=== PATIENT | female | born 1980 | race Caucasian/White ===

== ENCOUNTER 2021-07-29 18:09 | Emergency (ER) | payer SELFPAY ==
[2021-07-29 18:26] VITALS: BP 146/92; PULSE 118; RESP 22; TEMP 37.5; O2SAT 100; BMI 19.2
--- NOTE | 2021-07-29 18:53 | ED_ITS ---
Documented by User: KULWANT Jimenez 07/29/21 23:22 HPI - Wound/Laceration General: Chief Complaint: Wound/Laceration Stated Complaint: RT Under arm growth Time Seen by Provider: 07/29/21 18:36 History of Present Illness: Patient is a 41-year-old female comes to the ED with abscess in right armpit and elevated blood sugars. Patient is a type I diabetic and takes insulin at home. For the past several days patient says her blood sugars have been running over 500. Before she came to the ED she checked her blood sugar and it was over 600. She administered some insulin and then came to the ED. The right axillary abscess started approximately 1 week ago. She said it was small red nodule with a hightower that she thought was an ingrown hair. Swelling and pain continued to increase and now she rates the abscess pain currently a 9 out of 10. It has a large white head, red hot and swollen. Patient says she has had abscesses in the past but none in the axillary region. Denies any past MRSA or staph infections. Denies any abdominal pain, nausea/vomiting. Associated symptoms: Denies chills, fever(s), nausea or vomiting Review of Systems Const: Denies: fever(s), chills or fatigue Eyes: Denies: change in vision or eye discomfort ENMT: Denies: throat pain, odynophagia, nasal discharge or nasal congestion Card: Denies: chest pain, palpitations, edema, swelling of feet/ankles, dyspnea on exertion or orthopnea Resp: Denies: dyspnea, productive cough or non-productive cough GI: Denies: abdominal pain, nausea, vomiting, diarrhea, constipation or hematochezia : Denies: flank pain, dysuria or hematuria Musc: Denies: neck pain, back pain or extremity swelling Skin/Breast: Reports: new lesions (Abscess in right axillary region.); Denies: rash Neuro: Denies: headache(s), numbness in extremities or weakness in extremities Endo: Reports: other (Elevated Blood sugars over 500 for the past 3 days.) [facility]LY [facility] ED PFSH: Medical History Diabetes type I No pertinent family history Physical Exam Const: COMMON NORMALS: patient oriented x3 and alert GENERAL APPEARANCE: cooperative HENMT: COMMON NORMALS: normocephalic HEAD & SCALP: normocephalic MOUTH: Normal oral and palatal mucosa present THROAT: posterior oropharynx normal and uvula midline Eye: COMMON NORMALS: Equal, round and reactive pupils present and conjunctivae normal CONJUNCTIVA: Yes conjunctivae normal PUPIL: Yes Equal, round and reactive pupils present Neck/C-Spine: COMMON NORMALS: supple GENERAL: Yes normal visual inspection Resp: COMMON NORMALS: normal respiratory effort, No retractions, No use of accessory muscles and clear to auscultation bilaterally AUSCULTATION: clear to auscultation bilaterally Cardio: COMMON NORMALS: regular rate, regular rhythm, S1 normal heart sound present, S2 normal heart sound present, No gallops present (Cardio), No clicks present (Cardio), No murmurs present (Cardio) and Peripheral pulses 2+ throughout RATE: regular rate RHYTHM: regular rhythm HEART SOUNDS: S1 normal heart sound present and S2 normal heart sound present PERIPHERAL PULSES: Peripheral pulses 2+ throughout GI: COMMON NORMALS: Normal to inspection, nondistended, normoactive bowel sounds present, Soft to palpation, non-tender and no masses PALPATION: Yes Soft to palpation : COMMON NORMALS: Yes no CVA tenderness BLADDER/KIDNEY EXAM: Yes no CVA tenderness Back/Pelvis: COMMON NORMALS: no CVA tenderness Extremity: COMMON NORMALS: normal to inspection Neuro: COMMON NORMALS: patient oriented x3 SENSORIUM/ORIENTATION: Yes alert Skin: NARRATIVE SKIN EXAM: Right axillary?large, warm, tender nodule with white pustule head. Fluctuant and indurated. Some active purulent drainage during exam. Procedures Abscess I/D Site: upper extremity (right axillary) Side (if applicable): right Sedation/analgesia: other (dilaudid) Local Anesthetic: lidocaine 2% Amount of anesthesia used (mL): 6 Technique: incised with #11 blade Amount of fluid expressed (mL): 10 (Purulent malodorous and bloody drainage.) Irrigation: Yes Packing used?: none (pt refused packing. I strongly recommended it and explained risks of no packing) Course Vital Signs: Vital signs: Vital Signs Temperature 98.7 F 07/29/21 21:53 Pulse Rate 106 H 07/29/21 21:53 Respiratory Rate 17 07/29/21 21:53 Blood Pressure 147/92 07/29/21 21:53 Pulse Oximetry 99 07/29/21 21:53 MDM - Wound/Laceration Medical Decision Making Patient is a 41-year-old female that comes to the ED with right axillary abscess and hyperglycemia. She is a type I diabetic and takes insulin at home. Abscess started approximately a week ago and was small with a hightower and she thought it was a ingrown hair. It continued to get bigger red and more painful. She states her blood sugars have been hard to control for the past 3 days and she has been having consistent denies any fevers, shortness of breath, nauseous, vomiting or abdominal pain. Patient has had consistent blood sugar readings over 500 for the past 3 days. Vitals are stable after pain was controlled. She has a medium sized abscess with erythema, warmth and a white pustule head and minimal active purulent drainage. Rest of exam is benign. White blood cell count of 12.3 the rest of CBC was unremarkable. Patient's first blood glucose reading here in the ED was 598. CMP was unremarkable except for her blood glucose level of 335. hCG serum negative. Blood culture and abscess culture and Gram stain is pending. Serum ketones were negative. ABG was unremarkable. EKG showed sinus tachycardia with no other acute findings noted. Patient was given 1 L of IV fluids, 10 units of IV Novolin, Zofran and Dilaudid to help with pain. I&D was performed on abscess and I used lidocaine 2% as local. Approximately 10 mL of purulent malodorous drainage removed. Patient refused me putting any packing in abscess even after I strongly recommended it and talked about possible risks of not using packing. Abscess was irrigated extensively with normal saline. She was given IV bank here in the ED as well. Patient's blood glucose level dropped to 161. She was diagnosed with hyperglycemia and abscess. Patient was stable for discharge home and was told to follow-up with urgent care, PCP or emergency department the next 3 days to have abscess reevaluated. She was discharged home with a prescription for clindamycin, doxycycline and Celebrex for pain. Patient understood and agreed with plan. Lab Data I reviewed the patient's lab results. : 07/29/21 19:30 07/29/21 19:30 Laboratory Results WBC 12.3 10^3/uL (4.0-10.0) H 07/29/21 19:30 RBC 3.83 10^6/uL (4.1-5.3) L 07/29/21 19: Hgb 11.8 g/dL (11.5-15.3) 07/29/21: Hct 35.3 % (37.0-47.0) L 07/29/21: MCV 92.2 fl (81-99) 07/29/21: MCH 30.8 pg (28.0-34.0) 07/29/21: MCHC 33.4 g/dL (30.0-36.0) 07/29/21: RDW 14.6 % (12.1-15.1) 07/29/21: Plt Count 490 10^3/cmm (130-400) H 07/29/21: MPV 10.2 fL (7.4-10.4) 07/29/21: Neut % (Auto) 73.6 % 07/29/21: Lymph % (Auto) 15.9 % 07/29/21: Hyde % (Auto) 9.1 % 07/29/21: Eos % (Auto) 0.6 % 07/29/21: Baso % (Auto) 0.4 % 07/29/21: Neut # (Auto) 9.06 10^3/uL (1.8-7.7) H 07/29/21: Lymph # (Auto) 2.0 10^3/uL (0.8-4.8) 07/29/21: Hyde # (Auto) 1.1 10^3/uL (0.2-0.9) H 07/29/21: Eos # (Auto) 0.1 10^3/uL (0.0-0.8) 07/29/21: Baso # (Auto) 0.1 10^3/uL (0.0-0.1) 07/29/21: Nucleated RBC % (auto) 0 % 07/29/21 Nucleated RBCs # 0.0 /100WBC 07/29/21: Specimen Type Arterial 07/29/21 19:00 Sample Site Radial, left 07/29/21 19:00 ABG pH 7.39 (7.35-7.45) 07/29/21 19:00 ABG pCO2 44.7 mmHg (35-45) 07/29/21 19:00 ABG pO2 74.2 mmHg (80.0-100.0) L 07/29/21 19:00 ABG HCO3 27.2 mmol/L (22-26) H 07/29/21 19:00 ABG Base Excess 1.9 mmol/L (-2.0-2.0) 07/29/21 19:00 Fabian Test Pos 07/29/21 19:00 Hematocrit 36.5 % (37-47) L 07/29/21 19:00 O2 Delivery Device Room air 07/29/21 19:00 Wash Driller Helper ID raúl 07/29/21 19:00 Sodium 135 mmol/L (136-145) L 07/29/21 19:30 Potassium 4.3 mmol/L (3.5-5.1) 07/29/21 19:30 Chloride 98 mmol/L (98-107) 07/29/21 19:30 Carbon Dioxide 25 mmol/L (22-29) 07/29/21 19:30 Anion Gap 16.3 (5-19) 07/29/21 19:30 BUN 17 mg/dL (6-20) 07/29/21 19:30 Creatinine 0.6 mg/dL (0.5-0.9) 07/29/21 19:30 GFR Calculation 110.7 mL/min (90-130) 07/29/21 19:30 Glucose 335 mg/dL (65-115) H 07/29/21 19:30 POC Glucose 161 mg/dL (70-110) H 07/29/21 20:34 Calculated Osmolality 295 mOsm/kg (285-295) 07/29/21 19:30 Calcium 9.1 mg/dL (8.5-10.5) 07/29/21 19:30 Total Bilirubin 0.2 mg/dL (0.15-1.2) 07/29/21 19:30 AST 43 U/L (0-32) H 07/29/21 19:30 ALT 57 U/L (0-33) H 07/29/21 19:30 Alkaline Phosphatase 105 IU/L (35-105) 07/29/21 19:30 Total Protein 7.2 g/dL (6.6-8.7) 07/29/21 19:30 Albumin 3.4 g/dL (3.5-5.2) L 07/29/21 19:30 Globulin 3.8 g/dL (1.3-4.6) 07/29/21 19:30 HCG, Qual Negative (Negative) 07/29/21 19:30 Serum Ketones Negative (Negative) 07/29/21 19:30 EKG Data EKG 1: EKG interpretation date: 07/29/21 Interpretation: Sinus tachycardia, 114 bpm, no ST segment elevation or depression seen. No other acute findings. Discharge Plan Discharge Patient Disposition: Home Clinical Impression: Abscess, Acute hyperglycemia Condition: Stable Prescriptions: New clindamycin HCl 150 mg capsule 300 mg PO QID 7 Days Qty: 56 0RF Celebrex 100 mg capsule 100 mg PO BID PRN (Reason: pain) Qty: 20 0RF doxycycline hyclate 100 mg capsule 100 mg PO BID 7 Days Qty: 14 0RF Discharge Orders: Discharge ED (Routine); Ordered 07/29/21 Ordered By: Sohan Johnson Discharge Diet: Diabetic Discharge Activity: Increase activity as tolerated Patient Instructions: Abscess (ED), Diabetic Hyperglycemia (ED), Abscess Incision and Drainage (DC) Activity Restrictions/Additional Instructions: Follow-up with medical provider as directed in the next 3 days to reevaluate abscess. Take medications as prescribed. Return to the ER or your medical provider if condition worsens. Please read and understand discharge instructions. Thank you for choosing [facility] for your healthcare needs today. Please realize this is an emergency room and that we are providing you with a medical screening exam and this may not be complete and all inclusive of all the testing and or work up that you may need to determine your ailment or severity of your illness. It is very important that you follow up as instructed or that you return to the Emergency Department should you have concerns or if your condition changes or worsens in any way. Coding Level of Care Code ED Cna Pct for Chg Fwd Exam Comprehensive Documented by User: Janki Ruffin MD 07/30/21 11:04 HPI - Wound/Laceration General: Chief Complaint: Wound/Laceration Stated Complaint: RT Under arm growth Time Seen by Provider: 07/29/21 18:36 [facility] ED PFSH: Medical History Diabetes type I No pertinent family history Course Vital Signs: Vital signs: Vital Signs Temperature 98.7 F 07/29/21 21:53 Pulse Rate 106 H 07/29/21 21:53 Respiratory Rate 17 07/29/21 21:53 Blood Pressure 147/92 07/29/21 21:53 Pulse Oximetry 99 07/29/21 21:53 MDM - Wound/Laceration Medical Decision Making Patient is a 41-year-old female that comes to the ED with right axillary abscess and hyperglycemia. She is a type I diabetic and takes insulin at home. Abscess started approximately a week ago and was small with a hightower and she thought it was a ingrown hair. It continued to get bigger red and more painful. She states her blood sugars have been hard to control for the past 3 days and she has been having consistent denies any fevers, shortness of breath, nauseous, vomiting or abdominal pain. Patient has had consistent blood sugar readings over 500 for the past 3 days. Vitals are stable after pain was controlled. She has a medium sized abscess with erythema, warmth and a white pustule head and minimal active purulent drainage. Rest of exam is benign. White blood cell count of 12.3 the rest of CBC was unremarkable. Patient's first blood glucose reading here in the ED was 598. CMP was unremarkable except for her blood glucose level of 335. hCG serum negative. Blood culture and abscess culture and Gram stain is pending. Serum ketones were negative. ABG was unremarkable. EKG showed sinus tachycardia with no other acute findings noted. Patient was given 1 L of IV fluids, 10 units of IV Novolin, Zofran and Dilaudid to help with pain. I&D was performed on abscess and I used lidocaine 2% as local. Approximately 10 mL of purulent malodorous drainage removed. Patient refused me putting any packing in abscess even after I strongly recommended it and talked about possible risks of not using packing. Abscess was irrigated extensively with normal saline. She was given IV bank here in the ED as well. Patient's blood glucose level dropped to 161. She was diagnosed with hyperglycemia and abscess. Patient was stable for discharge home and was told to follow-up with urgent care, PCP or emergency department the next 3 days to have abscess reevaluated. She was discharged home with a prescription for clindamycin, doxycycline and Celebrex for pain. Patient understood and agreed with plan. Dr. Diamante Falcon evaluated the patient with our physician social and human services assistant Sohan Johnson. Upon initial assessment, I do not suspect that the patient has necrotizing soft tissue infection as this infection is slow growing over 1 week and there is abscess material that was expressed. I marked out the border of patient's erythema after expression of pus. Patient is given to agent for antibiotics including clindamycin doxycycline for MRSA and anaerobic coverage. Patient reassures me that she will follow-up with urgent care in 2 days for reassessment to determine whether the erythema is getting worse. Patient is given strict return precaution for any worsening pain, fever/chills, rapid spread of the redness past the borders, or any new or concerning complaints. As patient did not have any signs of DKA, patient's close improved with insulin in the emergency room. Lab Data : 07/29/21 19:30 07/29/21 19: Laboratory Results WBC 12.3 10^3/uL (4.0-10.0) H 07/29/21 19: RBC 3.83 10^6/uL (4.1-5.3) L 07/29/21 19: Hgb 11.8 g/dL (11.5-15.3) 07/29/21 19: Hct 35.3 % (37.0-47.0) L 07/29/21 19: MCV 92.2 fl (81-99) 07/29/21 19: MCH 30.8 pg (28.0-34.0) 07/29/21 19: MCHC 33.4 g/dL (30.0-36.0) 07/29/21 19: RDW 14.6 % (12.1-15.1) 07/29/21 19: Plt Count 490 10^3/cmm (130-400) H 07/29/21 19: MPV 10.2 fL (7.4-10.4) 07/29/21 19:30 Neut % (Auto) 73.6 % 07/29/21 19: Lymph % (Auto) 15.9 % 07/29/21 19:30 Hyde % (Auto) 9.1 % 07/29/21 19: Eos % (Auto) 0.6 % 07/29/21 19: Baso % (Auto) 0.4 % 07/29/21: Neut # (Auto) 9.06 10^3/uL (1.8-7.7) H 07/29/21 19: Lymph # (Auto) 2.0 10^3/uL (0.8-4.8) 07/29/21: Hyde # (Auto) 1.1 10^3/uL (0.2-0.9) H 07/29/21: Eos # (Auto) 0.1 10^3/uL (0.0-0.8) 07/29/21: Baso # (Auto) 0.1 10^3/uL (0.0-0.1) 07/29/21: Nucleated RBC % (auto) 0 % 07/29/21: Nucleated RBCs # 0.0 /100WBC 07/29/21 19:30 Specimen Type Arterial 07/29/21 19:00 Sample Site Radial, left 07/29/21 19:00 ABG pH 7.39 (7.35-7.45) 07/29/21 19:00 ABG pCO2 44.7 mmHg (35-45) 07/29/21 19:00 ABG pO2 74.2 mmHg (80.0-100.0) L 07/29/21 19:00 ABG HCO3 27.2 mmol/L (22-26) H 07/29/21 19:00 ABG Base Excess 1.9 mmol/L (-2.0-2.0) 07/29/21 19:00 Fabian Test Pos 07/29/21 19:00 Hematocrit 36.5 % (37-47) L 07/29/21 19:00 O2 Delivery Device Room air 07/29/21 19:00 Wash Driller Helper ID ellpe 07/29/21 19:00 Sodium 135 mmol/L (136-145) L 07/29/21 19:30 Potassium 4.3 mmol/L (3.5-5.1) 07/29/21 19:30 Chloride 98 mmol/L (98-107) 07/29/21 19:30 Carbon Dioxide 25 mmol/L (22-29) 07/29/21 19:30 Anion Gap 16.3 (5-19) 07/29/21 19:30 BUN 17 mg/dL (6-20) 07/29/21 19:30 Creatinine 0.6 mg/dL (0.5-0.9) 07/29/21 19:30 GFR Calculation 110.7 mL/min (90-130) 07/29/21 19:30 Glucose 335 mg/dL (65-115) H 07/29/21 19:30 POC Glucose 161 mg/dL (70-110) H 07/29/21 20:34 Calculated Osmolality 295 mOsm/kg (285-295) 07/29/21 19:30 Calcium 9.1 mg/dL (8.5-10.5) 07/29/21 19:30 Total Bilirubin 0.2 mg/dL (0.15-1.2) 07/29/21 19:30 AST 43 U/L (0-32) H 07/29/21 19:30 ALT 57 U/L (0-33) H 07/29/21 19:30 Alkaline Phosphatase 105 IU/L (35-105) 07/29/21 19:30 Total Protein 7.2 g/dL (6.6-8.7) 07/29/21 19:30 Albumin 3.4 g/dL (3.5-5.2) L 07/29/21 19:30 Globulin 3.8 g/dL (1.3-4.6) 07/29/21 19:30 HCG, Qual Negative (Negative) 07/29/21 19:30 Serum Ketones Negative (Negative) 07/29/21 19:30 Discharge Plan Discharge Patient Disposition: Home Clinical Impression: Abscess, Acute hyperglycemia Condition: Stable Prescriptions: New clindamycin HCl 150 mg capsule 300 mg PO QID 7 Days Qty: 56 0RF Celebrex 100 mg capsule 100 mg PO BID PRN (Reason: pain) Qty: 20 0RF doxycycline hyclate 100 mg capsule 100 mg PO BID 7 Days Qty: 14 0RF Discharge Orders: Discharge ED (Routine); Ordered 07/29/21 Ordered By: Sohan Johnson Discharge Diet: Diabetic Discharge Activity: Increase activity as tolerated Patient Instructions: Abscess (ED), Diabetic Hyperglycemia (ED), Abscess Incision and Drainage (DC) Activity Restrictions/Additional Instructions: Follow-up with medical provider as directed in the next 3 days to reevaluate abscess. Take medications as prescribed. Return to the ER or your medical provider if condition worsens. Please read and understand discharge instructions. Thank you for choosing [facility] for your healthcare needs today. Please realize this is an emergency room and that we are providing you with a medical screening exam and this may not be complete and all inclusive of all the testing and or work up that you may need to determine your ailment or severity of your illness. It is very important that you follow up as instructed or that you return to the Emergency Department should you have concerns or if your condition changes or worsens in any way. Coding Level of Care Code ED Cna Pct for Ling Mcfarland Exam Comprehensive
--- NOTE | 2021-07-29 18:53 | ECG_ITS ---
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 Measurements Intervals [place] Rate: 114 P: 71 MA: 155 QRS: 26 QRSD: 81 T: 63 QT: 301 QTc: 415 Interpretive Statements SINUS TACHYCARDIA POSSIBLE RIGHT ATRIAL ENLARGEMENT [0.25mV P-WAVE] NONSPECIFIC T-WAVE ABNORMALITY No previous ECG available for comparison Electronically Signed On 07-29-2021 20:59:06 CDT by Waqas Jiang M.D. [email or web address] healthOkoaaf[facility] Toursac[facility] [id number]
[2021-07-29 19:15] LABS: Glucose Point of Care 598 mg/dL (70-110)
[2021-07-29] MEDS: HYDROmorphone 1 mg/mL INJ 1 mL IVP (19:30)
[2021-07-29 19:53] LABS: ABG PCO2 44.7 mmHg (35-45); ABG PH Result 7.39 (7.35-7.45); Arterial Blood Gas Hematocrit 36.5 % (37-47); Base Excess ABG 1.9 mmol/L (-2.0-2.0); Blood Gas Allen Test Pos; Blood Gas Sample Site Radial, left; Blood Gas Sample Type Arterial; HCO3 ABG 27.2 mmol/L (22-26); Oxygen Device ROOM AIR; PO2 ABG 74.2 mmHg (80.0-100.0)
[2021-07-29] MEDS: sodium chloride 0.9% 1,000 ML 999 ML IV (19:56)
[2021-07-29] MEDS: ondansetron 2 mg/ML SDV 2 mL 4 MG IVP (19:56)
[2021-07-29] MEDS: insulin regular-human 100 units/1 mL 10 UNIT IVP (19:57)
[2021-07-29 20:01] LABS: Basophils # 0.1 10^3/uL (0.0-0.1); Basophils % 0.4 %; Eosinophils # 0.1 10^3/uL (0.0-0.8); Eosinophils % 0.6 %; Hematocrit 35.3 % (37.0-47.0); Hemoglobin 11.8 g/dL (11.5-15.3); Lymphocytes % 15.9 %; Mean Corpuscular HGB Conc 33.4 g/dL (30.0-36.0); Mean Corpuscular Hemoglobin 30.8 pg (28.0-34.0); Mean Corpuscular Volume 92.2 fl (81-99); Mean Platelet Volume 10.2 fL (7.4-10.4); Monocytes # 1.1 10^3/uL (0.2-0.9); Monocytes % 9.1 %; Neutrophils # 9.06 10^3/uL (1.8-7.7); Neutrophils % 73.6 %; Nucleated Red Blood Cells % 0 %; Platelet Count 490 10^3/cmm (130-400); Red Blood Count 3.83 10^6/uL (4.1-5.3); Red Cell Distribution Width 14.6 % (12.1-15.1); White Blood Count 12.3 10^3/uL (4.0-10.0)
[2021-07-29] MEDS: vancomycin 1,500 MG/300 ML PIGGYBACK 200 MG IV (20:04)
[2021-07-29 20:17] LABS: HCG, Serum Qual Negative (Negative); Ketone (Acetest) Serum Negative (Negative)
[2021-07-29 20:28] LABS: Alanine Aminotransferase 57 U/L (0-33); Albumin Level 3.4 g/dL (3.5-5.2); Alkaline Phosphatase 105 IU/L (35-105); Anion Gap 16.3 (5-19); Aspartate Amino Transferase 43 U/L (0-32); Blood Urea Nitrogen 17 mg/dL (6-20); Calcium 9.1 mg/dL (8.5-10.5); Carbon Dioxide 25 mmol/L (22-29); Chloride 98 mmol/L (98-107); Globulin 3.8 g/dL (1.3-4.6); Glomerular Filtration Rate 110.7 mL/min (90-130); Glucose 335 mg/dL (65-115); Osmolality Calculated 295 mOsm/kg (285-295); Potassium 4.3 mmol/L (3.5-5.1); Sodium 135 mmol/L (136-145); Total Bilirubin 0.2 mg/dL (0.15-1.2); Total Protein 7.2 g/dL (6.6-8.7)
[2021-07-29 20:36] LABS: Glucose Point of Care 161 mg/dL (70-110)
[2021-07-29 21:53] VITALS: BP 147/92; PULSE 106; RESP 17; TEMP 37.1; O2SAT 99
--- NOTE | 2021-07-29 22:27 | PC.NURSE ---
glucose check pt refused glucose check before dc 'I am fine, if my sugar was low I would feel it.
[2021-07-31 06:44] LABS: Bacillus cereus group Not Detected (NOT DETECT); Bacillus subtillis group Not Detected (NOT DETECT); Corynebacterium Not Detected (NOT DETECT); Cutibacterium acnes (P.acnes) Not Detected (NOT DETECT); Enterococcus Not Detected (NOT DETECT); Enterococcus faecalis Not Detected (NOT DETECT); Enterococcus faecium Not Detected (NOT DETECT); Lactobacillus species Not Detected (NOT DETECT); Listeria Not Detected (NOT DETECT); Listeria monocytogenes Not Detected (NOT DETECT); Micrococcus Not Detected (NOT DETECT); Pan Candida Not Detected (NOT DETECT); Pan Gram-Negative Not Detected (NOT DETECT); Staphylococcus epidermidis Not Detected (NOT DETECT); Staphylococcus lugdunensis Not Detected (NOT DETECT); Staphylococcus species Detected (NOT DETECT); Streptococcus agalactiae Not Detected (NOT DETECT); Streptococcus anginosus group Not Detected (NOT DETECT); Streptococcus pneumoniae Not Detected (NOT DETECT); Streptococcus pyogenes Not Detected (NOT DETECT); Streptococcus species Not Detected (NOT DETECT); mecA Detected (NOT DETECT); mecC Not Detected (NOT DETECT)
--- NOTE | 2021-07-31 15:36 | PC.NURSE ---
spoke to pt about lab results, told pt to follow up with pcp today or to come back to ED for treatment. pt stated she would be back this evening
== END 2021-07-29 22:27 | disposition home or self-care (01) ==
PROVIDERS: Emergency Medicine; Emergency Provider Physician Assistant
DX: L02.411 Cutaneous abscess of right axilla (principal); E10.65 Type 1 diabetes mellitus with hyperglycemia; Z79.4 Long term (current) use of insulin
CPT/HCPCS: 10060; 36416; 36600; 80053; 82009; 82803; 82962; 84703; 85025; 87040; 87070; 87075; 87077; 87150; 87186; 87205; 93005; 96365; 96375; 99284; J1170; J1815; J2405; J3370; J7030